=== PATIENT | male | born 1960 | race Caucasian/White ===

== ENCOUNTER 2018-04-13 10:33 | Emergency (ER) | payer OTHER, SELFPAY ==
[2018-04-13 10:35] VITALS: BMI 28.8
[2018-04-13 10:59] LABS: Bacteria Urine None Seen
[2018-04-13 11:00] VITALS: BP 142/85; PULSE 92; RESP 16; TEMP 37.1; O2SAT 98; BMI 28.8
[2018-04-13 11:00] LABS: Appearance Urine UA CLOUDY; Bilirubin Urine UA NEGATIVE (NEGATIVE); Color Urine UA YELLOW; Glucose Urine UA NEGATIVE (Normal); Ketones Urine UA TRACE (NEGATIVE); Leukocyte Esterase Urine UA NEGATIVE (NEGATIVE); Nitrite Urine UA Negative (Negative); Occult Blood Urine UA 3+ (Negative); Protein Urine UA TRACE (Negative); Specific Gravity Urine UA 1.015 (1.000-1.035); Urobilinogen Urine UA 0.2 E.U./dL (0.2); pH Urine UA 7.5 (4.5-8.0)
[2018-04-13 11:09] LABS: RBC Urine >100/HPF (0-5/HPF); WBC Urine 0-1/HPF (0-5/HPF)
[2018-04-13 11:10] LABS: Amorphous Sediment Urine 1+; Culture Indicated Urine Cult Not Indicated; Mucus Urine 1+ (Negative)
--- NOTE | 2018-04-13 11:54 | DI.CT.S_ITS ---
PROCEDURE: CT KIDNEY URETER BLADDER (KUB) INDICATIONS: Right flank pain TECHNIQUE: Noncontrast 5 mm thick sections acquired from the diaphragms to the symphysis. 5 mm thick coronal and sagittal reformats were then performed. For radiation dose reduction, the following was used: automated exposure control, adjustment of mA and/or kV according to patient size. COMPARISON: None. FINDINGS: Image quality: Excellent. Lung bases: Lung bases are clear. Heart size is normal. Small hiatal hernia. Urinary system: There is a 3 mm stone in the distal right ureter near the ureterovesical junction. There is mild right hydronephrosis and hydroureter. The right kidney is enlarged likely secondary to edema. There is marked right perinephric and periureteral stranding. Trace perinephric fluid around the right kidney. A couple of small 1-2 mm punctate calcifications are noted in left kidney. No left hydronephrosis. No kidney stones. Bladder wall thickness is normal; no calcified bladder stones. Prostate is enlarged. Other solid organs: Liver is normal in size. Gallbladder is normal. Pancreas is normal in contours. Spleen is normal in size. No adrenal nodules. Peritoneum and bowel: Unenhanced bowel loops demonstrate normal wall thickness and caliber. No free fluid or air. Nodes and vessels: No retroperitoneal or mesenteric adenopathy by size criteria. Aorta and inferior vena cava are normal in caliber. Abdominal wall: No ventral hernias. Pelvis: No free pelvic fluid. No inguinal adenopathy. Bilateral fat-containing inguinal hernias are noted. Bones: No suspicious bony lesions. No vertebral body compression fractures. IMPRESSION: 1. A 3 mm obstructing stone is present in the distal right ureter causing mild right hydronephrosis and hydroureter. There is marked right perinephric stranding and periureteral stranding, as well as a small amount of perinephric fluid. 2. Punctate 1-2 mm calculi in left kidney. No left hydronephrosis. 3. Enlarged prostate. 4. Bilateral fat-containing inguinal hernias. Dictated by: David Jimenez M.D. on 04/13/2018 at 12:19 Approved by: David Jimenez M.D. on 04/13/2018 at 12:34
--- NOTE | 2018-04-13 12:08 | ED_ITS ---
HPI - Abdominal Pain General Chief Complaint: Abdominal Pain Stated Complaint: 'PASSING A STONE' Time Seen by Provider: 04/13/18 11:44 Source: patient Mode of arrival: ambulatory History of Present Illness HPI narrative: Patient is a 57-year-old male who presents with a right lower quadrant pain. He has a history of kidney stones usually passes them on the left eye. Last week he noticed that his urine was brown. He is having pain in his right lower quadrant. He is worried about his appendix him this feels like previous kidney stone. No nausea or vomiting. Usually takes Tylenol for his kidney stones. Currently does not need anything for pain MD complaint: abdominal pain and flank pain Related Data Previous Rx's Medication Instructions Recorded ondansetron [Zofran ODT] 4 mg PO Q6H PRN #10 tab 04/13/18 Allergies Allergy/AdvReac Type Severity Reaction Status Date / Time amphetamine Allergy Verified 04/13/18 11:19 Barbiturates Allergy Verified 04/13/18 11:19 meperidine [From Demerol] Allergy Verified 04/13/18 11:19 Review of Systems Review of Systems All systems reviewed & are unremarkable except as noted in HPI and below Constitutional Denies chills, Denies fever(s), Denies lethargy and Denies weakness Cardiovascular Denies chest pain, Denies irregular heart rhythm, Denies lightheadedness, Denies palpitations, Denies dyspnea, Denies dyspnea on exertion and Denies orthopnea Respiratory Denies cough, Denies dyspnea, Denies dyspnea on exertion and Denies wheezing Gastrointestinal Gastrointestinal: Reports as per HPI Genitourinary Reports system reviewed and no additional complaints, except as docu and Reports hematuria Musculoskeletal Denies back pain, Denies muscle weakness, Denies numbness and Denies tingling Integumentary/Breasts Denies pruritus, Denies erythema, Denies rash and Denies wounds Neurologic Denies numbness, Denies tingling and Denies weakness Endocrine Denies palpitations Allergic/Immunologic Denies wheezing PFSH Medical History Hypertension (Acute) Kidney stones (Acute) Social History Smoking Status: Never smoker Exam Initial Vital Signs Initial Vital Signs: Vital Signs Temperature 98.7 F 04/13/18 11:00 Pulse Rate 92 H 04/13/18 11:00 Respiratory Rate 16 04/13/18 11:00 Blood Pressure 142/85 H 04/13/18 11:00 Pulse Oximetry 98 04/13/18 11:00 GENERAL: Well-appearing, well-nourished and in no acute distress. HEENT: Head atraumatic,EOMI, pupils reactive, neck is supple CARDIOVASCULAR: Regular rate and rhythm without murmurs, rubs or gallops. RESPIRATORY: Breath sounds equal bilaterally, no wheezes rales or rhonchi. ABDOMEN: Soft, minimal right lower under rebound : No CVA tenderness EXTREMITIES: Normal range of motion, no clubbing or edema. Neurovascularly intact NEUROLOGICAL: Alert and oriented x4.Normal gait and speech. SKIN: Warm, dry, no laceration, no petechiae, no rashes or lesions. Course Orders Ordered: ED Orders 04/13/18 10:50 Urinalysis and Microscopic Stat 04/13/18 11:54 CT kidney ureter bladder (KUB) Stat Vital Signs - 8 hr 04/13/18 13:01 Pulse Rate 84 Respiratory Rate 15 Blood Pressure 137/88 H Pulse Oximetry 95 MDM - Abdominal Pain Differential Diagnosis Differential diagnosis: Likely abdominal pain Lab Data Lab Results 04/13/18 Range/Units 10:50 Urine Color Yellow Urine Appearance Cloudy Urine pH 7.5 (4.5-8.0) Ur Specific [place] 1.015 (1.000-1.035) Urine Protein Trace H (Negative) Urine Glucose (UA) Negative (Normal) g/dL Urine Ketones Trace H (NEGATIVE) Urine Occult Blood 3+ H (Negative) Urine Nitrate Negative (Negative) Urine Bilirubin Negative (NEGATIVE) Urine Urobilinogen 0.2 (0.2) E.U./dL Ur Leukocyte Esterase Negative (NEGATIVE) Urine RBC >100/hpf (0-5/HPF) Urine WBC 0-1/hpf (0-5/HPF) Amorphous Sediment 1+ Urine Bacteria None seen (None) Urine Mucus 1+ H (Negative) Ur Culture Indicated? Cult not indicated Micro UA Comment Not Reportable Imaging Data CT scan - abdomen: Radiologist's impression: PROCEDURE: CT KIDNEY URETER BLADDER (KUB) INDICATIONS: Right flank pain TECHNIQUE: Noncontrast 5 mm thick sections acquired from the diaphragms to the symphysis. 5 mm thick coronal and sagittal reformats were then performed. For radiation dose reduction, the following was used: automated exposure control, adjustment of mA and/or kV according to patient size. COMPARISON: None. FINDINGS: Image quality: Excellent. Lung bases: Lung bases are clear. Heart size is normal. Small hiatal hernia. Urinary system: There is a 3 mm stone in the distal right ureter near the ureterovesical junction. There is mild right hydronephrosis and hydroureter. The right kidney is enlarged likely secondary to edema. There is marked right perinephric and periureteral stranding. Trace perinephric fluid around the right kidney. A couple of small 1- 2 mm punctate calcifications are noted in left kidney. No left hydronephrosis. No kidney stones. Bladder wall thickness is normal; no calcified bladder stones. Prostate is enlarged. Other solid organs: Liver is normal in size. Gallbladder is normal. Pancreas is normal in contours. Spleen is normal in size. No adrenal nodules. Peritoneum and bowel: Unenhanced bowel loops demonstrate normal wall thickness and caliber. No free fluid or air. Nodes and vessels: No retroperitoneal or mesenteric adenopathy by size criteria. Aorta and inferior vena cava are normal in caliber. Abdominal wall: No ventral hernias. Pelvis: No free pelvic fluid. No inguinal adenopathy. Bilateral fat- containing inguinal hernias are noted. Bones: No suspicious bony lesions. No vertebral body compression fractures. IMPRESSION: 1. A 3 mm obstructing stone is present in the distal right ureter causing mild right hydronephrosis and hydroureter. There is marked right perinephric stranding and periureteral stranding, as well as a small amount of perinephric fluid. 2. Punctate 1-2 mm calculi in left kidney. No left hydronephrosis. 3. Enlarged prostate. 4. Bilateral fat-containing inguinal hernias. Dictated by: David Jimenez M.D. on 04/13/2018 at 12:19 Approved by: David Jimenez M.D. on 04/13/2018 at 12:34 Discharge Plan Departure Patient Disposition: Home, Self-Care Clinical Impression: Kidney stone on right side Discharge Date/Time: 04/13/18 13:03 Interventions: ED Discharge Assessment Last Done: 04/13/18 13:01 Instructions: DI for Kidney Stones Activity Restrictions/Additional Instructions: Kidney stone is 3mm, it should pass in the next 1-2 days *Increase fluid intake * follow-up with your primary care physician in 2-3 days Strain urine, try to catch stone -If you should have fever, or pain is uncontrolled with medication at home or any other concerning symptoms return to ER for further evaluation MEDICATIONS Take Zofran every 4-6 hours if needed for nausea Prescriptions: New ondansetron [Zofran ODT] 4 mg tablet,disintegrating 4 mg PO Q6H PRN (Reason: nausea and vomiting) Qty: 10 RF: 0 Stand Alone Forms: Work/School Restrictions
[2018-04-13 13:01] VITALS: BP 137/88; PULSE 84; RESP 15; O2SAT 95
== END 2018-04-13 13:03 | disposition home or self-care (01) ==
PROVIDERS: Emergency Provider Emergency Medicine
DX: N20.0 Calculus of kidney (principal)
CPT/HCPCS: 74176; 81001; 99282; 99284